=== PATIENT | male | born 1980 | race Caucasian/White ===

== ENCOUNTER 2017-07-12 09:20 | Emergency (ER) | payer MEDICAID ==
[2017-07-12 09:25] VITALS: BP 128/81; PULSE 78; RESP 20; TEMP 98.9; O2SAT 100
--- NOTE | 2017-07-12 10:01 | C.PDOC ---
History Of Present Illness Patient woke with left ear pain this AM. No drainage, no fever, no chills. NO cough, no nausea, no vomiting, no diarrhea. No abd. pain. No headache. NO recent swimming. Time Seen by Provider: 07/12/17 09:47 Chief Complaint (Nursing): ENT Problem Past Medical History Reviewed: Nursing Documentation, Vital Signs Vital Signs: Last Vital Signs Temp 98.9 F 07/12/17 09:22 Pulse 78 07/12/17 09:22 Resp 20 07/12/17 09:22 BP 128/81 07/12/17 09:22 Pulse Ox 100 07/12/17 10:01 Family History: States: Unknown Family Hx - Social History Hx Tobacco Use: No Hx Alcohol Use: Yes Hx Substance Use: No - Immunization History Hx Tetanus Toxoid Vaccination: Yes (2015) Hx Influenza Vaccination: No Hx Pneumococcal Vaccination: No Review Of Systems Except As Marked, All Systems Reviewed And Found Negative. ENT: Positive for: Ear Pain Physical Exam - Physical Exam Skin: Normal Color Head: Atraumatic Eye(s): bilateral: Normal Inspection, PERRL, EOMI Ear(s): Bilateral: Normal Teeth: Normal Dentition Throat: Normal Neck: Normal Chest: Symmetrical Cardiovascular: Rhythm Regular Respiratory: Normal Breath Sounds Gastrointestinal/Abdominal: Normal Exam Back: Normal Inspection Extremity: Normal ROM ED Course And Treatment O2 Sat by Pulse Oximetry: 100 Medical Decision Making Medical Decision Making: otalgia - patient resting comfortably, states improvement. Will discharge home. Advised to start antibiotic only if pain persist > 24 hours. Disposition Counseled Patient/Family Regarding: Diagnosis, Need For Followup, Rx Given - Disposition Referrals: [facility] [Outside] Disposition: HOME/ ROUTINE Disposition Time: 09:56 Condition: STABLE Additional Instructions: follow up with your doctor or clinic in 2 days call to make an appointment take antibiotic only if pain persists return to hospital if symptoms worsens or progress Prescriptions: Amoxicillin 875 mg PO BID #20 tablet Ibuprofen [Motrin Tab] 600 mg PO TID PRN #12 tab PRN Reason: Pain, Moderate (4-7) Pseudoephedrine HCl [Sudafed] 30 mg PO QID PRN #15 tablet PRN Reason: Other Instructions: Earache (ED) Forms: [employer] (Georgian) - Clinical Impression Clinical Impression: Otalgia of left ear
== END 2017-07-12 10:09 | disposition home or self-care (01) ==
LOC: C.ER 09:20
DX: H92.02 Otalgia, left ear (principal)

== ENCOUNTER 2018-11-28 06:12 | Emergency (ER) | payer SELFPAY ==
--- NOTE | 2018-11-28 06:38 | C.PDOC ---
History Of Present Illness 38 year old male presents to the ED c/o not feeling well, productive cough with sputum for the past 2-3 days. Patient also c/o feeling achy and slight sore throat. Patient denies fever, chills, nausea, vomit, diarrhea, rash, headache, recent travel, sick contacts. <Ivan Childs Penny - Last Filed: 11/28/18 06:43> signed over @ 0700. malaise, dry cough (not productive) and no fevers belly discomfort taking Dayquil on empty stomach Dayquil helps with symptoms CXR/labs/flu swab neg exam clear lungs, normal exam ? seasonal allergies <Jeremy Tenorio - Last Filed: 11/28/18 07:37> History Per: Patient History/Exam Limitations: no limitations Onset/Duration Of Symptoms: Days Current Symptoms Are (Timing): Still Present Location Of Pain: Throat, Sinus/es Associated Symptoms: Chills, Sore Throat, Cough, Sputum, Myalgias Ear Symptoms: Bilateral: None Recent travel outside of the [place]: No Additional History Per: Patient <Ivan Childs R - Last Filed: 11/28/18 06:43> <Jeremy Tenorio E - Last Filed: 11/28/18 07:37> Chief Complaint (Nursing): Flu-like Symptoms Past Medical History Reviewed: Historical Data, Nursing Documentation, Vital Signs Vital Signs: Last Vital Signs Temp 98.5 F 11/28/18 06:18 Pulse 104 H 11/28/18 06:18 Resp 16 11/28/18 06:18 BP 181/90 H 11/28/18 06:18 Pulse Ox 99 11/28/18 06:18 Primary Care Provider: FAMILY PROVIDER,NO - Medical History PMH: No Chronic Diseases Surgical History: No Surg Hx Family History: States: Unknown Family Hx - Social History Hx Tobacco Use: No Hx Alcohol Use: Yes Hx Substance Use: Yes - Immunization History Hx Tetanus Toxoid Vaccination: Yes (2015) Hx Influenza Vaccination: No Hx Pneumococcal Vaccination: No <Ivan Childs - Last Filed: 11/28/18 06:43> Vital Signs: Last Vital Signs Temp 98.5 F 11/28/18 06:18 Pulse 104 H 11/28/18 06:18 Resp 11/28/18 06:18 BP 181/90 H 11/28/18 06:18 Pulse Ox 99 11/28/18 06:43 <Jeremy Tenorio E - Last Filed: 11/28/18 07:37> Review Of Systems Constitutional: Positive for: Malaise. Negative for: Fever, Chills ENT: Positive for: Nose Discharge, Nose Congestion, Throat Pain Cardiovascular: Negative for: Chest Pain Respiratory: Positive for: Cough, Sputum. Negative for: Shortness of Breath Gastrointestinal: Negative for: Nausea, Vomiting, Abdominal Pain Skin: Negative for: Rash Neurological: Negative for: Weakness, Numbness, Headache, Dizziness <Ivan Childs R - Last Filed: 11/28/18 06:43> Physical Exam - Physical Exam Appears: Non-toxic, No Acute Distress Skin: Normal Color, Warm, Dry Head: Atraumatic, Normacephalic Eye(s): bilateral: Normal Inspection Ear(s): Bilateral: Normal Nose: Normal Oral Mucosa: Moist Throat: Erythema, No Exudate Neck: Normal ROM, Supple Chest: Symmetrical Cardiovascular: Rhythm Regular Respiratory: Normal Breath Sounds, No Rales, No Rhonchi, No Wheezing Gastrointestinal/Abdominal: Soft, No Tenderness, No Guarding Extremity: Normal ROM, No Tenderness, No Swelling Neurological/Psych: Oriented x3, Normal Speech, Normal Cognition Gait: Steady <Ivan Childs R - Last Filed: 11/28/18 06:43> ED Course And Treatment O2 Sat by Pulse Oximetry: 99 (ON RA) Pulse Ox Interpretation: Normal <Ivan Childs R - Last Filed: 11/28/18 06:43> - Laboratory Results Result Diagrams: 11/28/18 06:55 11/28/18 07:10 Lab Results: Total Bilirubin 0.9 mg/dL (0.2-1.3) 11/28/18 07:10 AST 24 U/L (17-59) 11/28/18 07:10 ALT 32 U/L (21-72) 11/28/18 07:10 Alkaline Phosphatase 77 U/L (38-126) 11/28/18 07:10 Total Protein 7.8 g/dL (6.3-8.3) 11/28/18 07:10 Albumin 4.6 g/dL (3.5-5.0) 11/28/18 07:10 Globulin 3.3 gm/dL (2.2-3.9) 11/28/18 07:10 Albumin/Globulin Ratio 1.4 (1.0-2.1) 11/28/18 07:10 <Jeremy Tenorio - Last Filed: 11/28/18 07:37> Medical Decision Making Medical Decision Making: Plan: * CXR * Labs * Influenza A B * Rapid strep <Ivan Childs - Last Filed: 11/28/18 06:43> Disposition <Ivan Childs - Last Filed: 11/28/18 06:43> Doctor Will See Patient In The: Office Counseled Patient/Family Regarding: Studies Performed, Diagnosis - Disposition Disposition Time: 07:37 <Jeremy Tenorio - Last Filed: 11/28/18 07:37> - Disposition Disposition: HOME/ ROUTINE Condition: GOOD Forms: [facility] (Romansh) - Clinical Impression Clinical Impression: Cough - Scribe Statement The provider has reviewed the documentation as recorded by the Scribe Levon Gardner All medical record entries made by the Scribe were at my direction and personally dictated by me. I have reviewed the chart and agree that the record accurately reflects my personal performance of the history, physical exam, medical decision making, and the department course for this patient. I have also personally directed, reviewed, and agree with the discharge instructions and disposition. <Ivan Childs - Last Filed: 11/28/18 06:43>
[2018-11-28 07:01] LABS: BASO % 0.3 % (0.0-2.0); EOS % 0.3 % (0.0-4.0); HEMOGLOBIN 16.6 g/dL (12.0-18.0); LYMPH # 2.8 K/uL (1.0-4.3); LYMPH % 26.4 % (20.0-40.0); MEAN CELL VOLUME 87.8 fL (80.0-94.0); MEAN CORPUSCULAR HEMOGLOBIN 29.2 pg (27.0-31.0); MEAN CORPUSCULAR HGB CONC 33.3 g/dL (33.0-37.0); MEAN PLATELET VOLUME 9.1 fL (7.2-11.7); MONO % 9.2 % (0.0-10.0); NEUT # 6.7 K/uL (1.8-7.0); NEUT % 63.8 % (50.0-75.0); NRBC % 0.1 % (0.0-2.0); RBC 5.67 Mil/uL (4.40-5.90); RED CELL DISTRIBUTION WIDTH 13.4 % (11.5-14.5); WHITE BLOOD COUNT 10.5 K/uL (4.8-10.8)
--- NOTE | 2018-11-28 07:23 | RAD ---
Date of service: 11/28/2018 HISTORY: SOB COMPARISON: No prior. TECHNIQUE: Chest PA and lateral views FINDINGS: LUNGS: No active pulmonary disease. PLEURA: No significant pleural effusion identified. No pneumothorax apparent. CARDIOVASCULAR: No aortic atherosclerotic calcification present. Normal cardiac size. No pulmonary vascular congestion. OSSEOUS STRUCTURES: No significant abnormalities. VISUALIZED UPPER ABDOMEN: Normal. OTHER FINDINGS: None. IMPRESSION: No acute cardiopulmonary disease appreciated.
[2018-11-28 07:27] LABS: ALB/GLOB RATIO 1.4 (1.0-2.1); ALBUMIN 4.6 g/dL (3.5-5.0); ALT/SGPT 32 U/L (21-72); AST/SGOT 24 U/L (17-59); BLOOD UREA NITROGEN 10 mg/dL (9-20); CALCIUM 9.4 mg/dl (8.6-10.4); GFR NON-AFRICAN AMERICAN > 60
[2018-11-28 07:50] VITALS: BP 168/84; PULSE 88; RESP 18; TEMP 98.6; O2SAT 100
== END 2018-11-28 07:50 | disposition home or self-care (01) ==
LOC: C.ER 06:12
DX: R05 Cough (principal)